=== PATIENT | female | born 1965 | race Caucasian/White ===

== ENCOUNTER → 2018-03-07 | Outpatient (CLI) | payer OTHER ==
--- NOTE | 2018-03-07 15:25 | RAD ---
Left breast ultrasound, 03/07/2018: History: Suspicious screening study An outside screening exam demonstrated dense heterogeneous fibroglandular shadows bilaterally, with slight asymmetry suspected in the left upper inner quadrant. Today we performed a targeted ultrasound exam of the upper inner left breast. Normal heterogeneous fibroglandular shadows are present. No cystic or solid breast mass is seen. IMPRESSION: No sonographic abnormality is detected. The findings on the outside mammograms were probably due to superimposed fibroglandular shadows. Follow-up 3-D mammography in 6 months is suggested. BI-RADS 3-probably benign findings
== END | disposition home or self-care (01) ==
LOC: US 14:25
PROVIDERS: ATTEND Family Medicine
DX: R92.8 Other abnormal and inconclusive findings on diagnostic imaging of breast (principal)
CPT/HCPCS: 76641

== ENCOUNTER → 2018-08-02 | Outpatient (CLI) | payer OTHER ==
--- NOTE | 2018-08-08 08:28 | RAD ---
DATE: 08/02/2018 10:30 AM EXAM: MAMMO KAY ZECHARIAH LT, BREAST LEFT HISTORY: further evaluation of a finding noted on her most recent screening mammographic examination. On that examination a mass was reported within the right COMPARISON: Medial left breast 3D CC and MLO views of the left breast were performed using digital technique. This study was interpreted with the benefit of Computerized Aided Detection (CAD ). Breast Density: The breast parenchyma is heterogeneously dense, which could reduce sensitivity of mammography. Breast parenchyma level C. FINDINGS: The previously seen isodense nodule in the medial right breast is vaguely seen on today's examination, and on the tomographic images may partially be due to focal breast tissue. This area was therefore further evaluate by ultrasound. ULTRASOUND FINDINGS: Targeted ultrasound of the superior left breast was performed. Normal breast tissue was identified. No discrete mass was seen. IMPRESSION: No mammographic evidence of malignancy. BI-RADS CATEGORY: 2 BENIGN FINDING(S) RECOMMENDED FOLLOW-UP: 12M 12 MONTH FOLLOW-UP Annual screening mammography ( which will be due February 2019) is recommended, unless clinically indicated sooner based on symptoms or change in physical exam. PQRS compliance statement: Patient information was entered into a reminder system with a target due date March 01, 2019. for the next mammogram. Mammography is a sensitive method for finding small breast cancers, but it does not detect them all and is not a substitute for careful clinical examination. A negative mammogram does not negate a clinically suspicious finding and should not result in delay in biopsying a clinically suspicious abnormality. "Our facility is accredited by the [employer] Mammography Program." JETTD
== END | disposition home or self-care (01) ==
LOC: MAMMO 08:14
PROVIDERS: ATTEND Family Medicine
DX: R92.8 Other abnormal and inconclusive findings on diagnostic imaging of breast (principal)
CPT/HCPCS: 76641; 77065; G0279; 77061